=== PATIENT | female | born 1990 | race Caucasian/White ===

== ENCOUNTER 2020-05-24 09:51 | Emergency (ER) | payer OTHER ==
[~2020-05-24] VITALS: Ht 170.2 cm; Wt 103.9 kg
[2020-05-24 09:58] VITALS: BP 108/61
[2020-05-24] MEDS ORDERED: NAPROSYN500 MG PO (12:00)
== END 2020-05-24 12:24 | disposition home or self-care (01) ==
LOC: ED 09:51
DX: G58.8 Other specified mononeuropathies (principal); Z91.013 Allergy to seafood; Z88.8 Allergy status to other drugs, medicaments and biological substances